=== PATIENT | male | born 1985 | race Caucasian/White ===

== ENCOUNTER 2018-10-16 13:27 | Emergency (ER) | payer SELFPAY ==
[~2018-10-16] VITALS: Ht 175.3 cm; Wt 68.2 kg
[2018-10-16] MEDS ORDERED: PROPARACAINE HCL 0.5% 15 ML OPHTHALMIC SOLUTION OU ONE (14:00)
[2018-10-16] MEDS ORDERED: FLUORESCEIN SODIUM 1 MG STRIP OD ONE (14:00)
[2018-10-16 15:03] VITALS: BP 116/65
== END 2018-10-16 15:19 | disposition home or self-care (01) ==
LOC: EMS 13:30
DX: T15.11XA Foreign body in conjunctival sac, right eye, initial encounter (principal); F41.9 Anxiety disorder, unspecified; F17.210 Nicotine dependence, cigarettes, uncomplicated; F12.90 Cannabis use, unspecified, uncomplicated; Z88.0 Allergy status to penicillin; X58.XXXA Exposure to other specified factors, initial encounter; Y93.89 Activity, other specified; Y92.89 Other specified places as the place of occurrence of the external cause; Y99.8 Other external cause status